=== PATIENT | female | born 1965 | race Caucasian/White ===

== ENCOUNTER 2021-06-21 19:37 | Emergency (ER) | payer OTHER, MEDICAID, SELFPAY ==
[2021-06-21] VITALS (10 sets, daily range): BP systolic 152–187; BP diastolic 77–110; PULSE 52–72; RESP 16–33; TEMP 37; O2SAT 97–98; BMI 35.2
--- NOTE | 2021-06-21 19:54 | DI.RAD.S_ITS ---
PROCEDURE: XR CHEST 1V INDICATIONS: chest pain TECHNIQUE: One view of the chest was acquired. COMPARISON: [facility], , CHEST 1VW, 05/22/2010, 21:19. FINDINGS: Surgical changes and devices: None. Lungs and pleura: Lungs are clear. No pleural effusions or pneumothorax. Mediastinum: Mediastinal contours appear normal. Heart size is normal. Bones and chest wall: No suspicious bony lesions. Overlying soft tissues appear unremarkable. IMPRESSION: 1. No acute cardiopulmonary disease. Dictated by: Laron Vázquez M.D. on 06/21/2021 at 20:19 Approved by: Laron Vázquez M.D. on 06/21/2021 at 20:19
[2021-06-21 20:04] LABS: Add Manual Diff / Slide Review NO; Basophils Absolute Auto 100 /uL (0-100); Eosinophils Absolute Auto 200 /uL (0-450); Eosinophils Percent Auto 2.7 % (2-4); Hematocrit 42.7 % (36-46); Hemoglobin 14.3 g/dL (12.0-16.0); Lymphocytes Absolute Auto 2600 /uL (1100-4500); Lymphocytes Percent Auto 30.7 % (25-40); Mean Corpuscular HGB Conc 33.5 % (30-36); Mean Corpuscular Hemoglobin 27.4 PG (26-34); Mean Corpuscular Volume 81.8 fL (80-100); Monocytes Absolute Auto 800 /uL (0-900); Monocytes Percent Auto 9.2 % (3-14); Neutrophils Absolute Auto 4800 /uL (1500-7000); Neutrophils Percent Auto 56.4 % (50-75); Platelet Count 310 X10^3/uL (150-400); Red Blood Cell Count 5.22 X10^6/uL (4.0-5.2); White Blood Cell Count 8.5 X10^3/uL (4.5-11.0)
[2021-06-21 20:10] LABS: Prothrombin Time 11.1 SECONDS (10.1-12.7)
[2021-06-21 20:12] LABS: PTT Partial Thromboplastin Tim 33 SECONDS (26.4-36.2)
[2021-06-21 20:14] LABS: Alanine Aminotransferase 16 IU/L (<35); Albumin 4.5 g/dL (3.5-5.0); Albumin Globulin Ratio 1.2 (1.0-2.8); Alkaline Phosphatase 82 U/L (38-126); Aspartate Aminotransferase 25 IU/L (14-36); BUN Creatinine Ratio 15.3 (6-22); Bilirubin Total 0.4 mg/dL (0.2-1.3); Blood Urea Nitrogen 11 mg/dL (7-17); Calcium 9.1 mg/dL (8.4-10.2); Carbon Dioxide 25 mmol/L (22-32); Chloride 106 mmol/L (98-107); Creatine Kinase 244 U/L (30-135); Estimated Glomerular Filt Rate > 60.0 mL/min (>60); Globulin 3.8 g/dL (1.7-4.1); Glucose 107 mg/dL (70-100); HEMOLYSIS < 15 (0-50); Lipase 133 U/L (23-300); Magnesium 2.3 mg/dL (1.6-2.3); Sodium 139 mmol/L (137-145); Total Protein 8.3 g/dL (6.3-8.2)
[2021-06-21 20:26] LABS: Troponin I < 0.012 ng/mL (0.01-0.034)
[2021-06-21 20:29] LABS: CKMB % Relative Index 0.4 % (1.5-5.0); Creatine Kinase MB 0.93 ng/mL (<2.37)
--- NOTE | 2021-06-21 21:23 | PC.NURSE ---
Pt denies chest pain at this time, states she occasionally feels some flutters, NSR noted on the warranty administrator. Pt removed spo2 probe, states I know it's not a respiratory issue. Requested IV removal, educated pt on indications for IV and pt verbalizes understanding.
[2021-06-21 21:47] LABS: Bacteria Urine Few (2-10); RBC Urine 1-5/HPF (0-5/HPF); WBC Urine 0-1/HPF (0-5/HPF)
[2021-06-21 21:48] LABS: Squamous Epithelial Cell Urine 1-5 /HPF (0-5/HPF)
[2021-06-21 21:49] LABS: Culture Indicated Urine Cult Not Indicated
[2021-06-21 23:21] LABS: Troponin I < 0.012 ng/mL (0.01-0.034)
--- NOTE | 2021-06-21 23:35 | ED_ITS ---
HPI - Chest Pain General Chief Complaint: Chest Pain Stated Complaint: Possible UTI, Nausea, Heart flutter Time Seen by Provider: 06/21/21 23:11 History of Present Illness HPI narrative: Patient is a 55-year-old female who has no past medical in strain does not go to doctors presenting today with palpitations and near syncope. 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 She got lightheaded she had some visual changes dropped to 1 knee. She did not pass out. sHe overall did not feel well she went inside to lay down she went to sleep and woke up still not feeling right. She intermittently has palpitations now. She has tingling on the right side of her body. No weakness. She denies any shortness of breath. She has had some urinary urgency over the last 2 weeks no flank pain no abdominal pain no nausea or vomiting. sHe says feels like she has had a UTI. Related Data Previous Rx's Medication Instructions Recorded cephalexin 500 mg capsule 500 mg PO BID 5 Days #10 cap 06/21/21 Review of Systems Review of Systems Narrative: GENERAL: Denies chills, fatigue, malaise, fever, sweats, travel HEENT: Denies sinus pain, ear pain, sore throat, difficulty swallowing, neck pain RESPIRATORY: Denies dyspnea, cough, wheezing, hemoptysis, sputum. CARDIOVASCULAR: See HPI GASTROINTESTINAL: Denies nausea, vomiting, abdominal pain, diarrhea, constipation, melena. : See HPI MUSCULOSKELETAL: Denies weakness, joint pain, or bony pain SKIN: No rash, no erythema, no pruritus NEUROLOGIC: Denies weakness, dizziness, headache, numbness, change in speech, confusion PSYCHIATRIC: No concerning psychosocial issues. 12 point review of systems is negative except for those stated above and HPI Exam Initial Vital Signs Initial Vital Signs: Vital Signs Temperature 98.6 F 06/21/21 19:54 Pulse Rate 72 06/21/21 19:54 Respiratory Rate 16 06/21/21 19:54 Blood Pressure 187/110 H 06/21/21 19:54 Pulse Oximetry 98 06/21/21 19:54 GENERAL: Alert well-appearing 55-year-old female and in no acute distress. HEENT: Head atraumatic,EOMI, pupils reactive, face symmetric, moist mucous membranes CARDIOVASCULAR: Regular rate and rhythm without murmurs, rubs or gallops. RESPIRATORY: Breath sounds equal bilaterally, no wheezes rales or rhonchi. ABDOMEN: Soft, nontender. Normoactive bowel sounds all 4 quadrants. No guarding or rebound. : No CVA tenderness EXTREMITIES: Normal range of motion, no clubbing or edema. Neurovascularly intact NEUROLOGICAL: Alert and oriented x4.Normal gait and speech. Cranial nerves II through XII grossly intact. Good [id number], good [id number], strength equal bilaterally, no dysarthria or aphasia, sensation in tact to soft touch bilaterally, no visual changes, no facial droop SKIN: Warm, dry, no laceration, no petechiae, no rashes or lesions. Scores NIH Stroke Scale Level of Conciousness: Alert, keenly responsive Ask month/age: Answers both questions correctly. Open/close eyes, close hand: Performs both tasks correctly Best gaze horizontal: Normal Visual pena: No visual loss Facial palsy: Normal symetrical movement Left arm drift: No drift for full 10 sec Right arm drift: No drift for full 10 sec Left leg drift: No drift for full 5 sec Right leg drift: No drift for full 5 sec Limb ataxia: Absent Sensory on face/arms/legs: Normal, no sensory loss Best language: No aphasia, normal Dysarthria: Normal Extinction or inattention: No abnormality Total NIH Stroke scale score: 0 Course Orders Ordered: ED Orders 06/21/21 19:49 EKG-12 Lead Stat 06/21/21 19:52 Complete Blood Count AUTO DIFF Stat Comprehensive Metabolic Panel Stat Lipase Stat Magnesium Stat Partial Thromboplastin Time Stat Prothrombin Time INR Stat Troponin & CK Cardiac Panel Stat 06/21/21 19:54 XR chest 1V Stat 06/21/21 20:00 Urine Microscopic Stat 06/21/21 22:53 Trop I [Troponin I] Stat Discontinued Medications Cefazolin Sodium (Cephalexin 250 Mg Prepack) 1 bottle MISC SEEINSTR ONE Stop: 06/22/21 00:07 Last Admin: 06/22/21 00:15 Dose: 1 bottle Documented by: SOFI Vital Signs Vital signs: Vital Signs - 8 hr 06/21/21 20:30 06/21/21 21:00 06/21/21 21:30 Pulse Rate 61 63 66 Respiratory Rate 25 H 33 H 23 Blood Pressure Pulse Oximetry 97 97 06/21/21 21:31 06/21/21 22:00 06/21/21 22:30 Pulse Rate 56 L 55 L 52 L Respiratory Rate 17 24 16 Blood Pressure 175/81 H Pulse Oximetry 06/21/21 22:44 Pulse Rate 55 L Respiratory Rate 23 Blood Pressure 152/91 H Pulse Oximetry MDM - Chest Pain Lab Data Result diagrams: 06/21/21 19:52 06/21/21 19:52 Labs: Lab Results 06/21/21 06/21/21 06/21/21 Range/Units 19:52 19:52 19:52 WBC 8.5 (4.5-11.0) X10^3/uL RBC 5.22 H (4.0-5.2) X10^6/uL Hgb 14.3 (12.0-16.0) g/dL Hct 42.7 (36-46) % MCV 81.8 (80-100) fL MCH 27.4 (26-34) PG MCHC 33.5 (30-36) % RDW 16.0 H (11.6-14.8) % Plt Count 310 (150-400) X10^3/uL Neut % (Auto) 56.4 (50-75) % Lymph % (Auto) 30.7 (25-40) % [place] % (Auto) 9.2 (3-14) % Eos % (Auto) 2.7 (2-4) % Baso % (Auto) 1.0 (0-2) % Neut # (Auto) 4800 (4468-9899) /uL Lymph # (Auto) 2600 (9380-5992) /uL [place] # (Auto) 800 (0-900) /uL Eos # (Auto) 200 (0-450) /uL Baso # (Auto) 100 (0-100) /uL PT 11.1 (10.1-12.7) SECONDS INR 1.0 (0.9-1.3) APTT 33 (26.4-36.2) SECONDS Sodium 139 (137-145) mmol/L Potassium 4.0 (3.4-5.1) mmol/L Chloride 106 (98-107) mmol/L Carbon Dioxide 25 (22-32) mmol/L BUN 11 (7-17) mg/dL Creatinine 0.72 (0.52-1.04) mg/dL Estimated GFR > 60.0 (>60) mL/min BUN/Creatinine Ratio 15.3 (6-22) Glucose 107 H (70-100) mg/dL Calcium 9.1 (8.4-10.2) mg/dL Magnesium 2.3 (1.6-2.3) mg/dL Total Bilirubin 0.4 (0.2-1.3) mg/dL AST 25 (14-36) IU/L ALT 16 (<35) IU/L Alkaline Phosphatase 82 (38-126) U/L Total Creatine Kinase 244 H (30-135) U/L CK-MB (CK-2) 0.93 (<2.37) ng/mL CK-MB (CK-2) Rel Index 0.4 L (1.5-5.0) % Troponin I < 0.012 (0.01-0.034) ng/mL Total Protein 8.3 H (6.3-8.2) g/dL Albumin 4.5 (3.5-5.0) g/dL Globulin 3.8 (1.7-4.1) g/dL Albumin/Globulin Ratio 1.2 (1.0-2.8) Lipase 133 (23-300) U/L Urine RBC (0-5/HPF) Urine WBC (0-5/HPF) Ur Squamous Epith Cells (0-5/HPF) Urine Bacteria (None) Ur Culture Indicated? 06/21/21 06/21/21 Range/Units 20:00 22:53 WBC (4.5-11.0) X10^3/uL RBC (4.0-5.2) X10^6/uL Hgb (12.0-16.0) g/dL Hct (36-46) % MCV (80-100) fL MCH (26-34) PG MCHC (30-36) % RDW (11.6-14.8) % Plt Count (150-400) X10^3/uL Neut % (Auto) (50-75) % Lymph % (Auto) (25-40) % [place] % (Auto) (3-14) % Eos % (Auto) (2-4) % Baso % (Auto) (0-2) % Neut # (Auto) (7466-5126) /uL Lymph # (Auto) (1490-5227) /uL [place] # (Auto) (0-900) /uL Eos # (Auto) (0-450) /uL Baso # (Auto) (0-100) /uL PT (10.1-12.7) SECONDS INR (0.9-1.3) APTT (26.4-36.2) SECONDS Sodium (137-145) mmol/L Potassium (3.4-5.1) mmol/L Chloride (98-107) mmol/L Carbon Dioxide (22-32) mmol/L BUN (7-17) mg/dL Creatinine (0.52-1.04) mg/dL Estimated GFR (>60) mL/min BUN/Creatinine Ratio (6-22) Glucose (70-100) mg/dL Calcium (8.4-10.2) mg/dL Magnesium (1.6-2.3) mg/dL Total Bilirubin (0.2-1.3) mg/dL AST (14-36) IU/L ALT (<35) IU/L Alkaline Phosphatase (38-126) U/L Total Creatine Kinase (30-135) U/L CK-MB (CK-2) (<2.37) ng/mL CK-MB (CK-2) Rel Index (1.5-5.0) % Troponin I < 0.012 (0.01-0.034) ng/mL Total Protein (6.3-8.2) g/dL Albumin (3.5-5.0) g/dL Globulin (1.7-4.1) g/dL Albumin/Globulin Ratio (1.0-2.8) Lipase (23-300) U/L Urine RBC 1-5/hpf (0-5/HPF) Urine WBC 0-1/hpf (0-5/HPF) Ur Squamous Epith Cells 1-5 /hpf (0-5/HPF) Urine Bacteria Few (2-10) H (None) Ur Culture Indicated? Cult not indicated Urine Dip Bedside Urine Glucose Negative Bedside Urine Bilirubin - Negative Bedside Urine Ketone - Negative Urine Specific [place] 1.010 Bedside Urine Occult Blood +++ Bedside Urine pH 6.0 Bedside Urine Protein - Negative Bedside Urine Urobilinogen - Negative Bedside Urine Nitrite - Negative Bedside Urine Leukocytes - Negative Esterase Imaging Data Chest x-ray: Radiologist's Impression: PROCEDURE:? XR CHEST 1V ? INDICATIONS:? chest pain ? TECHNIQUE:? One view of the chest was acquired.? ? COMPARISON:? [facility], CR, CHEST 1VW, 05/22/2010, 21:19. ? FINDINGS:? ? Surgical changes and devices:? None.? ? Lungs and pleura:? Lungs are clear.? No pleural effusions or pneumothorax.? ? Mediastinum:? Mediastinal contours appear normal.? Heart size is normal.? ? Bones and chest wall:? No suspicious bony lesions.? Overlying soft tissues appear unremarkable.? ? IMPRESSION:? ? 1.? No acute cardiopulmonary disease. ? ? ? Dictated by: Laron Vázquez M.D. on 06/21/2021 at 20:19 ? ? ECG Data Interpretation: Normal sinus rhythm rate 55 DE interval 166 QRS [address] changes no T- wave inversion MDM Narrative Medical decision making narrative: Patient had heart palpitations and near syncopal episode today. No acute findings here in the emergency department. She says that she did have palpitations. I don't see any evidence of arrhythmia on her monitor. She actually remains slightly bradycardic with heart rate in the 50s. She is not having any focal deficits. To not have loss of consciousness no stroke symptoms at this time I see no need for any further imaging or workup. She does have some bacteria and blood in her urine will treat her for UTI. Overall not septic. Encouraged her to get a primary care provider and a Holter monitor. Discharge Plan Departure Patient Disposition: Home Clinical Impression: Heart palpitations, UTI (urinary tract infection) Instructions: Arrhythmias, DI for Urinary Tract Infection (UTI) Activity Restrictions/Additional Instructions: *You have been diagnosed with palpitations and UTI *What to do: At this time I do recommend outpatient follow-up with a Holter monitor. Blood work is overall reassuring today. IV do have a minor bladder infection and will give the antibiotics. This may or may not be contributing to your palpitations today *Continue to take medications as directed Keflex 500 mg twice a day for 5 days *Follow up with your primary care provider in 2-3 days or call [phone] *Return to ER if you should have increasing episode of palpitations passing out fever persistent vomiting or any new, worsening or concerning symptoms Prescriptions: New cephalexin 500 mg capsule 500 mg PO BID 5 Days Qty: 10 0RF Referrals: Ashley Hubbard DO [Primary Care Provider] -
[2021-06-22] MEDS: cephALEXin 250 MG PREPACK 1 BOTTLE MISC (00:15)
== END 2021-06-22 00:23 | disposition home or self-care (01) ==
PROVIDERS: Emergency Provider Emergency Medicine; PCP Family Medicine
DX: R00.2 Palpitations (principal); N39.0 Urinary tract infection, site not specified
CPT/HCPCS: 36415; 71045; 80053; 81003; 81015; 82550; 82553; 83690; 83735; 84484; 85025; 85610; 85730; 93005; 93010; 99284